=== PATIENT | female | born 1950 | race Caucasian/White ===

== ENCOUNTER 2017-11-18 04:18 | Emergency (ER) | payer MEDICARE, OTHER ==
[~2017-11-18] VITALS: Ht 160 cm; Wt 90.0 kg
[~2017-11-18 04:18] MED LIST: DIGO125T PO; DIGO125T4 PO; LOP25T PO; VERA120T PO; VERA240T PO
[2017-11-18 04:55] VITALS: BP 134/89
== END 2017-11-18 04:56 | disposition home or self-care (01) ==
LOC: ER 04:18
DX: R00.2 Palpitations (principal); M79.602 Pain in left arm; R20.2 Paresthesia of skin; Z88.5 Allergy status to narcotic agent
CPT/HCPCS: 93005; 99283

== ENCOUNTER 2018-02-19 06:49 | Inpatient (IN) | payer MEDICARE, OTHER ==
[~2018-02-19] VITALS: Ht 172.7 cm; Wt 76.1 kg
[~2018-02-19 06:49] MED LIST changes: +DIGO-28 PO; -DIGO125T4 PO
[2018-02-19] MEDS ORDERED: nitroGLYCERIN 0.4mg SUBLingual tab SL PRN (07:00)
[2018-02-19] MEDS ORDERED: aspirin 81mg tab.chew PO ONE (07:00)
[2018-02-19 07:14] LABS: BASOPHILS % (AUTO) 0.1 % (0-1); EOSINOPHILS # (AUTO) 0.1 X10'3 (0-0.9); EOSINOPHILS % (AUTO) 1.6 % (0-6); HEMATOCRIT 42.3 % (35.0-45.0); HEMOGLOBIN 14.7 g/dl (12.0-16.0); LYMPHOCYTES # (AUTO) 1.4 X10'3 (1.1-4.8); LYMPHOCYTES % (AUTO) 18.1 % (21-51); MEAN CORPUSCULAR HEMOGLOBIN 34.1 PG (27.0-31.0); MEAN CORPUSCULAR HGB CONC 34.9 % (33.0-36.5); MEAN CORPUSCULAR VOLUME 97.7 FL (78-98); MEAN PLATELET VOLUME 8.1 FL (7.4-10.4); MONOCYTES # (AUTO) 0.7 X10'3 (0-0.9); MONOCYTES % (AUTO) 8.8 % (2-12); NEUTROPHILS # (AUTO) 5.5 X10'3 (1.8-7.7); NEUTROPHILS % (AUTO) 71.4 % (42-75); PLATELET COUNT 225 X10'3 (140-440); RED BLOOD COUNT 4.32 X10'6 (4.20-5.60); RED CELL DISTRIBUTION WIDTH 13.7 % (11.5-14.5); WHITE BLOOD COUNT 7.7 X10'3 (4.5-11.0)
[2018-02-19 07:35] LABS: ALANINE AMINOTRANSFERASE 30 U/L (12-78); ALBUMIN 3.7 G/DL (3.4-5.0); ALBUMIN/GLOBULIN RATIO 0.9 (1.1-1.5); ALKALINE PHOSPHATASE 64 IU/L (46-116); ANION GAP 10 (8-16); ASPARTATE AMINO TRANSFERASE 26 U/L (10-37); BILIRUBIN,TOTAL 0.5 MG/DL (0.1-1.0); BLOOD UREA NITROGEN 16 MG/DL (7-18); BUN/CREATININE RATIO 21.1 (6.6-38.0); CALCIUM 9.6 MG/DL (8.5-10.1); CHLORIDE 110 MMOL/L (99-107); CREATININE 0.76 MG/DL (0.40-0.90); GLUCOSE 84 MG/DL (70-104); MAGNESIUM 1.8 MG/DL (1.5-2.4); POTASSIUM 3.4 MMOL/L (3.5-5.1); SODIUM 145 MMOL/L (135-145); TOTAL CARBON DIOXIDE 24.8 MMOL/L (24-32); TOTAL PROTEIN 7.7 G/DL (6.4-8.2); eGFR 76 ML/MIN
[2018-02-19] MEDS ORDERED: potassium Cl 40MEQ/NS 500ml 500 ML IV PRN ×2 (09:15)
[2018-02-19] MEDS ORDERED: mag hydrox/Alum hydrox/simeth 30ml oral suspension PO PRN (09:15)
[2018-02-19] MEDS ORDERED: magnesium Cl slow-release 64mg tablet PO PRN (09:15)
[2018-02-19] MEDS ORDERED: magnesium 2GM in 50ml NS 50 ML IV PRN (09:15)
[2018-02-19] MEDS: K and/or MAG REPLACEMENT MC SCH (09:15)
[2018-02-19] MEDS ORDERED: magnesium 4gm in 100ml NS 100 ML IV PRN (09:15)
[2018-02-19] MEDS ORDERED: ondansetron/PF 4mg/2ml inj IV PRN (09:15)
[2018-02-19] MEDS ORDERED: acetaminophen 325mg tablet PO PRN ×2 (09:15)
[2018-02-19] MEDS ORDERED: magnesium hydroxide 30ml (MOM) UD suspension PO PRN (09:15)
[2018-02-19] MEDS ORDERED: potassium Cl 20 mEq SR tablet PO PRN (09:15)
[2018-02-19 09:34] LABS: PARTIAL THROMBOPLASTIN TIME 27 SECONDS (22-32); PROTHROMBIN TIME 10.6 SECONDS (9.0-12.0)
[2018-02-19 09:52] LABS: PHOSPHORUS 2.5 MG/DL (2.3-4.5)
[2018-02-19] MEDS: normal saline 1000ml 1,000 ML IV SCH ×2 (10:29→17:20)
[2018-02-19] MEDS ORDERED: FLEC100T2 PO (10:53)
[2018-02-19] MEDS: potassium Cl 20 mEq SR tablet PO PRN ×3 (10:59→20:32)
[2018-02-19] MEDS ORDERED: LOSA50TA37 PO (15:24)
[2018-02-19] MEDS ORDERED: ATOR10TA70 PO (15:24)
[2018-02-19 16:10] VITALS: BP 127/54
[2018-02-19] MEDS: flecainide 50mg tablet PO SCH (20:31)
[2018-02-19] MEDS: losartan 50mg tablet PO SCH (20:32)
[2018-02-19] MEDS ORDERED: temazepam 15mg capsule PO PRN (21:00)
[2018-02-19] MEDS ORDERED: atorvastatin 10mg tablet PO SCH (21:00)
[2018-02-19 22:00] VITALS: BP 131/71
[2018-02-20 02:00] VITALS: BP 134/71
[2018-02-20] MEDS: normal saline 1000ml 1,000 ML IV SCH (02:41)
[2018-02-20 05:00] VITALS: BP 146/77
[2018-02-20 06:05] LABS: HEMATOCRIT 35.4 % (35.0-45.0); HEMOGLOBIN 12.2 g/dl (12.0-16.0); MEAN CORPUSCULAR HEMOGLOBIN 33.9 PG (27.0-31.0); MEAN CORPUSCULAR HGB CONC 34.4 % (33.0-36.5); MEAN CORPUSCULAR VOLUME 98.6 FL (78-98); MEAN PLATELET VOLUME 8.5 FL (7.4-10.4); PLATELET COUNT 206 X10'3 (140-440); RED BLOOD COUNT 3.59 X10'6 (4.20-5.60); RED CELL DISTRIBUTION WIDTH 13.8 % (11.5-14.5); WHITE BLOOD COUNT 5.7 X10'3 (4.5-11.0)
[2018-02-20 06:26] LABS: ANION GAP 9 (8-16); BLOOD UREA NITROGEN 12 MG/DL (7-18); BUN/CREATININE RATIO 21.1 (6.6-38.0); CALCIUM 8.8 MG/DL (8.5-10.1); CHLORIDE 113 MMOL/L (99-107); CHOL/HDL RATIO 2.2 (0.00-4.99); CHOLESTEROL 127 MG/DL (0-200); CREATININE 0.57 MG/DL (0.40-0.90); GLUCOSE 92 MG/DL (70-104); HDL CHOLESTEROL 59 MG/DL (35-60); LDL CHOLESTEROL 53 MG/DL (50-100); MAGNESIUM 1.7 MG/DL (1.5-2.4); POTASSIUM 4.3 MMOL/L (3.5-5.1); SODIUM 146 MMOL/L (135-145); TOTAL CARBON DIOXIDE 24.2 MMOL/L (24-32); TRIGLYCERIDES 53 MG/DL (20-135); eGFR > 90 ML/MIN
[2018-02-20] MEDS: K and/or MAG REPLACEMENT MC SCH (07:49)
[2018-02-20] MEDS: flecainide 50mg tablet PO SCH (07:49)
[2018-02-20] MEDS: losartan 50mg tablet PO SCH (07:51)
[2018-02-20] MEDS ORDERED: enoxaparin 40mg/0.4ml syringe SQ SCH (08:00)
[2018-02-20] MEDS ORDERED: aspirin 325mg tablet PO SCH (08:30)
[2018-02-20 10:00] VITALS: BP 129/77
[2018-02-20] MEDS ORDERED: CLOP75TA15 PO (13:23)
== END 2018-02-20 14:00 | disposition home or self-care (01) | DRG 69 ==
LOC: ER 06:50 → ED HOLD 09:11 → ORTHO 4S 16:00
PROVIDERS: ADMIT Family Medicine; ATTEND Family Medicine
DX: G45.9 Transient cerebral ischemic attack, unspecified (principal); E87.1 Hypo-osmolality and hyponatremia; I11.9 Hypertensive heart disease without heart failure; I48.91 Unspecified atrial fibrillation; E78.5 Hyperlipidemia, unspecified; E87.6 Hypokalemia; R01.1 Cardiac murmur, unspecified; R47.1 Dysarthria and anarthria; G47.30 Sleep apnea, unspecified; Z90.49 Acquired absence of other specified parts of digestive tract; Z88.5 Allergy status to narcotic agent; Z79.899 Other long term (current) drug therapy; Z86.73 Personal history of transient ischemic attack (TIA), and cerebral infarction without residual deficits
CPT/HCPCS: 36415; 70450; 70544; 70551; 71045; 80048; 80053; 80061; 83036; 83735; 83880; 84100; 84439; 84443; 84484; 85025; 85027; 85610; 85730; 87070; 93005; 93306; 93880; 97116; 97161; 99285; J1650; J7030

== ENCOUNTER 2020-09-12 14:22 | Day surgery (SDC) | payer MEDICARE, OTHER ==
[2020-09-08 12:17] LABS: BASOPHILS # (AUTO) 0.1 X10'3 (0-0.2); BASOPHILS % (AUTO) 1.2 % (0-1); EOSINOPHILS % (AUTO) 0.7 % (0-6); HEMATOCRIT 44.7 % (35.0-45.0); HEMOGLOBIN 15.1 g/dl (12.0-16.0); LYMPHOCYTES # (AUTO) 1.2 X10'3 (1.1-4.8); LYMPHOCYTES % (AUTO) 20.5 % (21-51); MEAN CORPUSCULAR HEMOGLOBIN 33.7 PG (27.0-31.0); MEAN CORPUSCULAR HGB CONC 33.7 g/dL (33.0-36.5); MEAN PLATELET VOLUME 8.8 FL (7.4-10.4); MONOCYTES # (AUTO) 0.5 X10'3 (0-0.9); MONOCYTES % (AUTO) 8.1 % (2-12); NEUTROPHILS # (AUTO) 4.2 X10'3 (1.8-7.7); NEUTROPHILS % (AUTO) 69.5 % (42-75); PLATELET COUNT 194 X10'3 (140-440); RED BLOOD COUNT 4.47 X10'6 (4.20-5.60); RED CELL DISTRIBUTION WIDTH 13.3 % (11.5-14.5); WHITE BLOOD COUNT 6.1 X10'3 (4.5-11.0)
[2020-09-08 12:24] LABS: ALBUMIN 3.6 G/DL (3.4-5.0); ANION GAP 6 (8-16); BLOOD UREA NITROGEN 33 MG/DL (7-18); BUN/CREATININE RATIO 39.3 (6.6-38.0); CALCIUM 9.2 MG/DL (8.5-10.1); CHLORIDE 106 MMOL/L (99-107); CREATININE 0.84 MG/DL (0.40-0.90); GLUCOSE 93 MG/DL (70-104); POTASSIUM 4.3 MMOL/L (3.5-5.1); SODIUM 143 MMOL/L (135-145); TOTAL CARBON DIOXIDE 30.9 MMOL/L (24-32); eGFR 67 ML/MIN
[2020-09-08 12:27] LABS: PARTIAL THROMBOPLASTIN TIME 28 SECONDS (22-32)
[2020-09-12] VITALS (9 sets, daily range): BP systolic 106–128; BP diastolic 68–85
[~2020-09-12] VITALS: Ht 160 cm; Wt 66.3 kg
[~2020-09-12 14:22] MED LIST changes: +ATOR10TA70 PO; +CLOP75TA15 PO; -DIGO-28 PO; -DIGO125T PO; +FLEC100T2 PO; -LOP25T PO; +LOSA50TA64 PO; -VERA120T PO; -VERA240T PO
[2020-09-12] MEDS ORDERED: normal saline 1000ml 1,000 ML IV SCH (14:50)
[2020-09-12] MEDS ORDERED: MIDAZolam 1mg/ml 10ml vial IV ONE (14:50)
[2020-09-12] MEDS ORDERED: fentaNYL/PF 50MCG/1 ML 2ML syringe IV ONE (14:50)
[2020-09-12] MEDS ORDERED: GABA-530 PO ×2 (16:07)
[2020-09-12] MEDS ORDERED: DILT180T11 PO (16:07)
[2020-09-12] MEDS ORDERED: DIAZ5TAB4 PO (16:07)
[2020-09-12] MEDS ORDERED: APIX5TAB3 PO (16:07)
[2020-09-12] MEDS ORDERED: MULT-1085 PO (16:07)
[2020-09-12] MEDS ORDERED: ASCO500W7 PO (16:07)
[2020-09-12] MEDS ORDERED: PROC-8 PO (16:07)
[2020-09-12] MEDS ORDERED: IBUP-1984 PO (16:07)
[2020-09-12] MEDS ORDERED: PROP225C9 PO (16:07)
== END 2020-09-12 18:15 | disposition home or self-care (01) ==
LOC: SSTAY O 14:22
PROVIDERS: ATTEND Student in an Organized Health Care Education/Training Program
DX: I48.0 Paroxysmal atrial fibrillation (principal); E11.9 Type 2 diabetes mellitus without complications; I10 Essential (primary) hypertension; I49.5 Sick sinus syndrome; I47.1 Supraventricular tachycardia; I48.92 Unspecified atrial flutter; Z95.0 Presence of cardiac pacemaker; Z79.01 Long term (current) use of anticoagulants; Z79.899 Other long term (current) drug therapy; Z88.5 Allergy status to narcotic agent; Z95.818 Presence of other cardiac implants and grafts
CPT/HCPCS: 36415; 80048; 85025; 85610; 85730; 92960; 93005; J2250; J3010; J7030